=== PATIENT | male | born 1965 | race Caucasian/White ===

== ENCOUNTER 2016-10-12 02:14 | Inpatient (IN) | payer OTHER ==
[2016-10-12] VITALS (9 sets, daily range): BP systolic 116–160; BP diastolic 57–85; PULSE 79–90; RESP 14–21; TEMP 98.3; Ht 177.8 cm; Wt 101.6 kg
[~2016-10-12] VITALS: Ht 177.8 cm; Wt 101.6 kg
--- NOTE | 2016-10-12 02:52 | RADRPT ---
PROCEDURE: XR Pelvis. CLINICAL INDICATION: Rectal foreign body. TECHNIQUE: Single AP view of the pelvis. COMPARISON: No prior studies are available for comparison. FINDINGS: There is a 4.7 cm length by 1.6 cm width oblong shape foreign body superimposed over the pelvis com patible with a history of rectal foreign body. Bowel gas pattern is unremarkable. There is no frac ture. Hips are unremarkable. Joint relationships are maintained. Bone mineralization is within no rmal limits. Pelvic vascular calcifications are present. IMPRESSION: Relatively large radiopaque foreign body consistent with a rectal foreign body. RPTAT: [facility]VK .Harry Díaz MD, MD Date Time Electronically viewed and signed by .Harry Díaz MD, on 10/12/2016 02:51 .K/
[2016-10-12] MEDS ORDERED: SOD CHLORIDE 0.9% 1,000 ML IV STA (03:25)
[2016-10-12] MEDS ORDERED: SOD CHLORIDE 0.9% 1,000 ML IV SCH (03:50)
[2016-10-12] MEDS ORDERED: ACETAMINOPHEN 325 MG TAB PO PRN (04:00)
[2016-10-12] MEDS ORDERED: ONDANSETRON 4 MG INJ IV PRN ×2 (04:00→06:30)
--- NOTE | 2016-10-12 04:13 | ERA ---
ER Documentation Chief Complaint Date/Time DATE: 10/12/16 TIME: 04:09 Chief Complaint anal foreign body since 4 pm HPI This is a 51-year-old male who presents to the emergency room for evaluation of an anal foreign body for the past 9 hours. The patient states that he was using this foreign body for sexual pleasure and has been unable to retrieve it. He denies any pain but does say he is uncomfortable and noted small amount of bleeding from the rectum and came to the ER for evaluation. The patient denies being on any blood thinners and states that he has a history of bipolar and hypertension ROS All systems reviewed and are negative except as per history of present illness. Allergies Allergies: Coded Allergies: No Known Drug Allergies (Verified Allergy, Unknown, 10/12/16) PMhx/Soc History of Surgery: No Anesthesia Reaction: No Hx Neurological Disorder: No Hx Respiratory Disorders: No Hx Cardiac Disorders: Yes (HTN) Hx Psychiatric Problems: No Hx Miscellaneous Medical Probl: No Hx Alcohol Use: Yes (occasionally) Hx Substance Use: No Hx Tobacco Use: Yes (quit) Smoking Status: Former smoker Physical Exam Vitals Vital Signs Date Time Temp Pulse Resp B/P Pulse Ox O2 Delivery O2 Flow Rate FiO2 10/12/16 02:18 98.0 92 20 172/92 98 Physical Exam INITIAL VITAL SIGNS: Reviewed by me GENERAL: The patient is well developed and appropriate for usual state of health in no apparent distress HEENT: Pupils equal, round, and reactive to light. EOMI. There is no scleral icterus. NECK: C-spine is soft and supple, there is no meningismus. There is no cervical lymphadenopathy. LUNGS: Clear to auscultation bilaterally. There are no rales, wheezes or rhonchi. HEART: Regular rate and rhythm, no murmurs, clicks, rubs or gallops. ABDOMEN: Soft, non-tender, non-distended. There are bowel sounds in all four quadrants. No rebound or guarding. EXTREMITIES: There is no peripheral cyanosis or edema. No focal swelling or erythema. NEUROLOGICAL: The patient moves all four extremities with 5/5 strength. Cranial nerves II - XII are intact. Normal gait. Alert and oriented SKIN: There is no apparent rash or petechiae. Rectal exam: No visible mucosal tearing, palpation of rectal foreign body approximately 7 cm into the rectum. No active bleeding HEME/LYMPHATIC: There is no evidence of excessive bruising or lymphedema. PSYCHIATRIC: The patient does not appear anxious or depressed. Results 24 hrs Current Medications Medications (Trade) Dose Ordered Sig/Braulio Route PRN Reason Start Time Stop Time Status Last Admin Dose Admin Sodium Chloride 1,000 ml @ 1,000 mls/hr Q1H STAT IV 10/12/16 03:25 10/12/16 04:24 Sodium Chloride (NS) 1,000 ml @ 125 mls/hr Q8H IV 10/12/16 03:50 10/12/16 11:49 Ondansetron HCl (Zofran Inj) 4 mg BRIDGE ORDER PRN IV NAUSEA AND/OR VOMITING 10/12/16 04:00 10/13/16 03:59 Acetaminophen (Tylenol Tab) 650 mg ER BRIDGE PRN PO MILD PAIN/FEVER 10/12/16 04:00 10/13/16 03:59 Procedures/MDM X-ray Pelvis 1V Interpreted by me: Bones: No fracture Joints: No dislocation Foreign body: Rectal foreign body X-ray Abdomen 1V Interpreted by me: Free Air: [None] Bowel Gas: [Nonspecific] Soft Tissue: Rectal foreign body This 51-year-old male presents to the emergency room for removal of a rectal foreign body. When I evaluated this patient he was hemodynamically stable. I did do a rectal exam was able to palpate a foreign body however I was unable to retrieve it manually. I did attempt to retrieve it using a plastic clamps from her [employer] car. I was unsuccessful after multiple attempts of doing this. I did then proceeded to place an anoscope this patient's rectum for visualization of this foreign body however endoscope was not long enough to visualize foreign body as it was too proximal. I have contacted our general surgeon on-call Dr. Haskins and I discussed the case with him. He asked if I can call gastroenterology. I paged Dr. sharpe multiple times however have not heard back at this time. The patient will be admitted at this time under the care of Dr. walker who states that he will follow-up with gastroenterology to determine whether this patient can have a colonoscopy for removal foreign body or whether this patient needs surgical removal. Critical Care: Excluding all billable procedures Time: 38 minutes Treatments/Evaluations: Close monitoring and treatment of unstable vital signs, cardiorespiratory, and neurologic status, while maintaining tight balance of fluid, respiratory, and cardiac interventions, multiple attempts of rectal foreign body removal. Departure Diagnosis: Primary Impression: Retained foreign body Additional Impression: Rectal foreign body Condition: Stable JACOB KELLY DO Oct 12, 2016 04:13
--- NOTE | 2016-10-12 04:21 | RADRPT ---
PROCEDURE: XR Abdomen. CLINICAL INDICATION: Abdominal pain. TECHNIQUE: 4 frontal views of the abdomen. COMPARISON: None. FINDINGS: There is an object within the mid pelvis measuring 4.8 x 1.6 cm. There is moderate retained stool w ithin the colon. There is no bowel obstruction or free air. There is no organomegaly. There is no abnormal calcification. The osseous structures are unremarkable. IMPRESSION: Rectal foreign body. There is no definite free air identified. Moderate retained stool within the colon. .Forrest Garcia MD, MD Date Time Electronically viewed and signed by .Forrest Garcia MD, on 10/12/2016 04:21 .T/
[2016-10-12 04:24] LABS: BASOPHILS % 0.5 % (0.0-2.0); EOSINOPHILS # 0.1 10^3/ul (0.0-0.5); EOSINOPHILS % 1.4 % (0.0-7.0); HEMATOCRIT 41.8 % (42.0-52.0); HEMOGLOBIN 14.1 g/dl (14.0-18.0); LYMPHOCYTES # 2.3 10^3/ul (0.8-2.9); LYMPHOCYTES % 26.5 % (15.0-51.0); MEAN CORPUSCULAR HEMOGLOBIN 30.3 pg (29.0-33.0); MEAN CORPUSCULAR HGB CONC 33.7 g/dl (32.0-37.0); MEAN CORPUSCULAR VOLUME 89.7 fl (82.0-101.0); MEAN PLATELET VOLUME 9.2 fl (7.4-10.4); MONOCYTE # 0.9 10^3/ul (0.3-0.9); MONOCYTES % 10.3 % (0.0-11.0); NEUTROPHIL # 5.3 10^3/ul (1.6-7.5); NEUTROPHILS % 60.6 % (39.0-77.0); PLATELET COUNT 259 10^3/UL (140-415); RED BLOOD COUNT 4.66 10^6/ul (4.70-6.10); RED CELL DISTRIBUTION WIDTH 12.3 % (11.5-14.5); WHITE BLOOD COUNT 8.7 10^3/ul (4.8-10.8)
[2016-10-12 04:32] LABS: INR 0.96; PARTIAL THROMBOPLASTIN TIME 25.4 Sec (25.0-35.0); PROTIME 12.8 Sec (12.2-14.2)
[2016-10-12 04:35] LABS: ALBUMIN 4.7 g/dl (3.3-4.9); ALBUMIN/GLOBULIN RATIO 1.56; BILIRUBIN,INDIRECT 0.2 mg/dl (0-1.1); BILIRUBIN,TOTAL 0.2 mg/dl (0.2-1.3); CALCIUM 9.7 mg/dl (8.4-10.2); CREATININE 1.02 mg/dl (0.61-1.24); POTASSIUM 4.1 mmol/L (3.5-5.1); TOTAL PROTEIN 7.7 g/dl (6.1-8.1)
[2016-10-12] MEDS ORDERED: LISI10TA2 PO (04:58)
[2016-10-12] MEDS ORDERED: LITH450T PO (04:58)
[2016-10-12] MEDS ORDERED: CLON0.5T4 PO (04:59)
[2016-10-12] MEDS ORDERED: BUPR150T6 PO (04:59)
[2016-10-12] MEDS ORDERED: ATOR20TA38 PO (04:59)
[2016-10-12] MEDS ORDERED: BUPR300T36 PO (04:59)
[2016-10-12] MEDS ORDERED: EMTR1TAB11 PO (05:00)
[2016-10-12 05:13] LABS: ADD UMIC NO; UR ASCORBIC ACID NEGATIVE (NEGATIVE); UR BILIRUBIN (Dip) NEGATIVE (NEGATIVE); UR BLOOD (Dip) NEGATIVE (NEGATIVE); UR CLARITY CLEAR (CLEAR); UR COLOR STRAW (YELLOW); UR GLUCOSE (Dip) NEGATIVE (NEGATIVE); UR KETONES (Dip) NEGATIVE (NEGATIVE); UR LEUKOCYTE ESTERASE (Dip) NEGATIVE Leu/ul (NEGATIVE); UR NITRITE (Dip) NEGATIVE (NEGATIVE); UR SPECIFIC GRAVITY (Dip) 1.011 (1.003-1.030); UR TOTAL PROTEIN (Dip) NEGATIVE (NEGATIVE); UR UROBILINOGEN (Dip) NEGATIVE (NEGATIVE)
[2016-10-12] MEDS ORDERED: morphine 2 MG INJ IV PRN (06:30)
[2016-10-12] MEDS ORDERED: clonAZEPAM 0.5 MG TAB PO PRN (06:30)
--- NOTE | 2016-10-12 06:44 | HP ---
Date/Time of Note Date/Time of Note DATE: 10/12/16 TIME: 06:33 Assessment/Plan VTE Prophylaxis VTE Prophylaxis Intervention: SCD's Assessment/Plan Chief Complaint/Hosp Course This is a 51-year-old male being admitted to the [facility] for: #1 rectal foreign body: Pelvic and abdominal x-rays do show the presence of a large oblong foreign body in the rectal region. Manual extraction was attempted in the ED by the ED physician however it was unsuccessful. The surgeon chemical instrumentation officer was consulted by the ED physician. The surgeon also recommended a GI consultation however the ED was not able to get in touch with the GI doctor chemical instrumentation officer. We will try again in the morning to get in touch with GI. At the current time we will keep the patient n.p.o. except medications will provide him with IV fluid hydration. Provide him morphine for pain control. Though there were no rectal tears seen based on the ED physicians exam , I will order an H&H in 6 hours as the patient did state that he noticed some blood in the stool. #2 bipolar disorder: Patient does not appear to be in manic phase at this point or home homicidal or suicidal. Continue patient's home medications. #3 Hypertension: Continue home blood pressure medications. #4 hyperlipidemia: Continue home statin. #5 HIV prophylaxis: Patient takes Truvada at home, he will have his partner bring his home medication and to be taken. He states he gets tested regularly for HIV. #6 DVT and GI prophylaxis: SCDs, Protonix Further treatment strategy will be implemented as per the clinical course. Problems: HPI/ROS Admit Date/Time Admit Date/Time Oct 12, 2016 at 03:51 Hx of Present Illness Chief complaint: Anal foreign body This is a 51-year-old male who presents to the emergency room for evaluation of an anal foreign body for the past 9 hours. The patient states that he was using this foreign body for sexual pleasure and has been unable to retrieve it. He denies any pain but does say he is uncomfortable and noted small amount of bleeding from the rectum and came to the ER for evaluation. The patient denies being on any blood thinners and states that he has a history of bipolar and hypertension. Upon my examination patient states that he has used this foreign body before but is the first time that has gotten stuck. His sexual orientation is homosexual and he has a partner. He does state that he has occasional painful spasms. I did discuss the case with the ED physician who did state that he tried manual retrieval of the foreign body however it was unsuccessful in extracting it. Allergies: Eggplant, pineapple, tomatoes, strawberries Medications: See ANGIE HANNON Const: As per HPI Eyes : No pain discharge or redness or change in visual acuity ENT: No pain, sore throat, congestion, congestion, dysphagia or discharge Respiratory: No shortness of breath, cough, sputum, wheezing, or pleuritic pain Cardiovascular: No chest pain, palpitation, PND, or edema GI : As per HPI Genitourinary: No dysuria, hematuria, flank pain , discharge or CVA tenderness Musculoskeletal: No joint pain, back pain, neck pain, restricted range of motion in neck or joints Skin: No rash, bruising or hives Neuro: No headache, dizziness, syncope, seizure, focal weakness Endocrine: No polyuria, polydipsia, temperature intolerance Psych: No hallucination, depression, anxiety or suicidal ideation PMH/Family/Social Past Medical History Bipolar disorder, hypertension Past Surgical History Past Surgical Hx: no surgical history Family History Significant Family History: hypertension (Dad) Social History Alcohol Use: rarely Smoking Status: Former smoker Drug Use: none Exam/Review of Systems Vital Signs Vitals Vital Signs Date Time Temp Pulse Resp B/P Pulse Ox O2 Delivery O2 Flow Rate FiO2 10/12/16 05:05 98.3 75 21 128/79 98 Room Air Intake and Output 10/11/16 10/11/16 10/12/16 15:00 23:00 07:00 Intake Total 1000 ml Balance 1000 ml Exam Exam General: Patient is well-developed lying in bed in no acute distress HEENT: Atraumatic, normocephalic. The pupils are equal, round and reactive. Extraocular motor are intact Neck: Supple with full range of motion. No rigidity or meningismus Chest: Nontender Lungs: Clear to auscultation bilaterally no crackles rales or wheezing Heart: Normal S1-S2, Regular rhythm and rate. No murmur, S3, or S4 Abdomen: Soft, nontender nondistended. Deferred rectal examination at this time as he already was examined extensively in the ED. Extremities: Normal to inspection, no edema no cyanosis Neurologic: Normal mental status, speech normal, cranial nerves II through XII are intact, motor and sensory are intact, no focal weakness Additional Comments PROCEDURE: XR Abdomen. CLINICAL INDICATION: Abdominal pain. TECHNIQUE: 4 frontal views of the abdomen. COMPARISON: None. FINDINGS: There is an object within the mid pelvis measuring 4.8 x 1.6 cm. There is moderate retained stool within the colon. There is no bowel obstruction or free air. There is no organomegaly. There is no abnormal calcification. The osseous structures are unremarkable. IMPRESSION: Rectal foreign body. There is no definite free air identified. Moderate retained stool within the colon. .Forrest Garcia MD, MD Date Time Electronically viewed and signed by .Forrest Garcia MD, on 10/12/2016 04:21 PROCEDURE: XR Pelvis. CLINICAL INDICATION: Rectal foreign body. TECHNIQUE: Single AP view of the pelvis. COMPARISON: No prior studies are available for comparison. FINDINGS: There is a 4.7 cm length by 1.6 cm width oblong shape foreign body superimposed over the pelvis compatible with a history of rectal foreign body. Bowel gas pattern is unremarkable. There is no fracture. Hips are unremarkable. Joint relationships are maintained. Bone mineralization is within normal limits. Pelvic vascular calcifications are present. IMPRESSION: Relatively large radiopaque foreign body consistent with a rectal foreign body. RPTAT: HMVK .Harry Díaz MD, Date Time Electronically viewed and signed by .Harry Díaz MD, MD on 10/12/2016 02:51 Labs Result Diagram: 10/12/16 0350 10/12/16 0350 Medications Medications Current Medications Sodium Chloride (NS) 1,000 ml @ 125 mls/hr Q8H IV Last administered on t 05:56; Admin Dose 125 MLS/HR; Start 10/12/16 at 03:50; Stop 10/12/16 at 11: 49 Atorvastatin Calcium (Lipitor) 20 mg QHS PO ; Start 10/12/16 at 21:00 Bupropion HCl (Wellbutrin Xl) 150 mg QAM PO ; Start 10/12/16 at 09:00 Bupropion HCl (Wellbutrin Xl) 300 mg QPM PO ; Start 10/12/16 at 21:00 Clonazepam (Klonopin) 0.5 mg BID PRN PO ANXIETY; Start 10/12/16 at 06:30 Emtricitabine/ Tenofovir (Truvada) 1 tab DAILY PO ; Start 10/12/16 at 09:00 Lisinopril (Zestril) 10 mg DAILY PO ; Start 10/12/16 at 09:00 [place] Carbonate ([place] Carbonate (Sr)) 450 mg TID PO ; Start 10/12/16 at 09: 00; Status UNV Ondansetron HCl (Zofran Inj) 4 mg Q4H PRN IV NAUSEA AND/OR VOMITING; Start at 06:30 Morphine Sulfate (morphine) 1 mg Q4H PRN IV PAIN; Start 10/12/16 at 06:30 MARICARMEN GREENFIELD Oct 12, 2016 06:44
[2016-10-12] MEDS ORDERED: SOD CHLORIDE 0.45% 1,000 ML IV SCH (07:30)
[2016-10-12] MEDS ORDERED: LISINOPRIL 10 MG TAB PO SCH (09:00)
[2016-10-12] MEDS ORDERED: LITHIUM CARBONATE (SR) 300 MG TAB PO SCH (09:00)
[2016-10-12] MEDS ORDERED: EMTRICITABINE/TENOFOVIR TAB PO SCH (09:00)
[2016-10-12] MEDS ORDERED: BUPROPION (XL) 150 MG TAB PO SCH ×2 (09:00→21:00)
[2016-10-12] MEDS ORDERED: ROCURONIUM 50 MG INJ ONE (10:10)
[2016-10-12] MEDS ORDERED: PROPOFOL 20 ML ONE (10:10)
[2016-10-12] MEDS ORDERED: CEFAZOLIN 1 GM INJ ONE (10:11)
[2016-10-12] MEDS ORDERED: FENTAnyl 50 MCG/ML VIAL ONE ×2 (10:11)
[2016-10-12] MEDS ORDERED: ONDANSETRON 4 MG INJ ONE (10:11)
[2016-10-12] MEDS ORDERED: DEXAMETHASONE 4 MG/ML 1 ML INJ ONE (10:11)
[2016-10-12] MEDS ORDERED: NEOSTIGMINE 3 MG/3 ML SYRINGE ONE (10:11)
[2016-10-12] MEDS ORDERED: MIDAZOLAM 1 MG/ML 2 ML INJ ONE (10:11)
--- NOTE | 2016-10-12 10:14 | CONS ---
Date/Time of Note Date/Time of Note DATE: 10/12/16 TIME: 10:14 Assessment/Plan Assessment/Plan Additional Assessment/Plan Assessment: * Foreign body in the rectum/large "sexual toy" accidentally lost * Bipolar illness * Hypertension * Dyslipidemia * On Truvada for HIV prophylaxis Plan: * Urgent colonoscopy foreign body removal Consultation Date/Type/Reason Admit Date/Time Oct 12, 2016 at 03:51 Date of Consultation: Oct 12, 2016 Type of Consultation: GI Reason for Consultation * Foreign body and rectum Hx of Present Illness 51-year-old male with history of bipolar illness, he presented to the emergency room after accidentally losing control of a large "sexual toy". X-rays showed a sizable foreign body in the area of the rectum, attempted removal in the emergency room were unsuccessful. The patient has experienced discomfort in the lower abdomen described as cramping and also had a small amount of blood noted through the rectum. At this point the patient will be evaluated with colonoscopy and attempted foreign body removal. The case has been reviewed with surgical elastic knitter hand frame who is on standby if I am unable to remove foreign body to attempt surgical removal transanally or if necessary with laparotomy. The patient has been informed of the nature of the procedure the significant risks of potential injury. He is agreeable to proceed. . Constitutional: improved, no complaints Eyes: no complaints ENT: no complaints Respiratory: no complaints Cardiovascular: no complaints Gastrointestinal: other (See history of present illness) Genitourinary: no complaints Musculoskeletal: no complaints Skin: no complaints Neurologic: no complaints Endocrine: no complaints Lymphatic: no complaints Psychological: nl mood/affect, no complaints Immunologic: no complaints Past Medical History * Bipolar illness * Hypertension * Dyslipidemia * Truvada for HIV prophylaxis Past Surgical History Past Surgical Hx: no surgical history Family History Significant Family History: no pertinent family hx Social History Alcohol Use: rarely Smoking Status: Former smoker Drug Use: none Exam/Review of Systems Vital Signs Vitals Vital Signs Date Time Temp Pulse Resp B/P Pulse Ox O2 Delivery O2 Flow Rate FiO2 10/12/16 08:07 98.4 79 16 116/69 95 10/12/16 05:30 Room Air Intake and Output 10/11/16 10/11/16 10/12/16 15:00 23:00 07:00 Intake Total 1000 ml Balance 1000 ml Exam Constitutional: alert, obese, oriented, well developed Psych: nl mood/affect, no complaints Head: atraumatic, normocephalic Eyes: EOMI, PERRL, nl conjunctiva, nl lids, nl sclera ENMT: nl external ears & nose, nl lips & teeth, nl nasal mucosa & septum Neck: non-tender, supple Respiratory: clear to auscultation, normal air movement Cardiovascular: nl pulses, regular rate and rhythm Gastrointestinal: nl liver, spleen, non-tender, other (Rectal exam deferred to colonoscopy), soft Musculoskeletal: nl extremities to inspection, nl gait and stance Extremities: normal pulses Neurological: CONVEYOR LOADER II-XII intact, nl mental status, nl speech, nl strength Skin: nl turgor, No rash or lesions Lymph: nl lymph nodes Results Result Diagram: 10/12/16 0350 10/12/16 0350 Results 24 hrs Laboratory Tests Test 10/12/16 03:50 10/12/16 04:20 White Blood Count 8.7 Red Blood Count 4.66 L Hemoglobin 14.1 Hematocrit 41.8 L Mean Corpuscular Volume 89.7 Mean Corpuscular Hemoglobin 30.3 Mean Corpuscular Hemoglobin Concent 33.7 Red Cell Distribution Width 12.3 Platelet Count 259 Mean Platelet Volume 9.2 Neutrophils % 60.6 Lymphocytes % 26.5 Monocytes % 10.3 Eosinophils % 1.4 Basophils % 0.5 Nucleated Red Blood Cells % 0.0 Neutrophils # 5.3 Lymphocytes # 2.3 Monocytes # 0.9 Eosinophils # 0.1 Basophils # 0.0 Nucleated Red Blood Cells # 0.0 Prothrombin Time 12.8 Prothrombin Time Ratio 1.0 INR International Normalized Ratio 0.96 Activated Partial Thromboplast Time 25.4 Sodium Level 146 H Potassium Level 4.1 Chloride Level 106 Carbon Dioxide Level 25 Anion Gap 19 H Blood Urea Nitrogen 14 Creatinine 1.02 Glucose Level 89 Calcium Level 9.7 Total Bilirubin 0.2 Direct Bilirubin 0.00 Indirect Bilirubin 0.2 Aspartate Amino Transf (AST/SGOT) 28 Alanine Aminotransferase (ALT/SGPT) 55 Alkaline Phosphatase 56 Total Protein 7.7 Albumin 4.7 Globulin 3.00 Albumin/Globulin Ratio 1.56 Lipase 94 Urine Color STRAW Urine Clarity CLEAR Urine pH 7.0 Urine Specific [place] 1.011 Urine Ketones NEGATIVE Urine Nitrite NEGATIVE Urine Bilirubin NEGATIVE Urine Urobilinogen NEGATIVE Urine Leukocyte Esterase NEGATIVE Urine Hemoglobin NEGATIVE Urine Glucose NEGATIVE Urine Total Protein NEGATIVE Medications Medications Current Medications Atorvastatin Calcium (Lipitor) 20 mg QHS PO ; Start 10/12/16 at 21:00 Bupropion HCl (Wellbutrin Xl) 150 mg QAM PO ; Start 10/12/16 at 09:00 Bupropion HCl (Wellbutrin Xl) 300 mg QPM PO ; Start 10/12/16 at 21:00 Clonazepam (Klonopin) 0.5 mg BID PRN PO ANXIETY; Start 10/12/16 at 06:30 Emtricitabine/ Tenofovir (Truvada) 1 tab DAILY PO ; Start 10/12/16 at 09:00 Lisinopril (Zestril) 10 mg DAILY PO ; Start 10/12/16 at 09:00 [place] Carbonate ([place] Carbonate (Sr)) 450 mg TID PO ; Start 10/12/16 at 09: 00; Status UNV Ondansetron HCl (Zofran Inj) 4 mg Q4H PRN IV NAUSEA AND/OR VOMITING; Start at 06:30 Morphine Sulfate 1 mg 1 mg Q4H PRN IV PAIN Last administered on 10/12/16 06:41 ; Admin Dose 1 MG; Start 10/12/16 at 06:30 Sodium Chloride (1/2 NS) 1,000 ml @ 125 mls/hr Q8H IV Last administered on 08:42; Admin Dose 125 MLS/HR; Start 10/12/16 at 07:30 MARY ELLEN BRUNNER MD Oct 12, 2016 10:14
[2016-10-12] MEDS ORDERED: SUGAMMADEX SODIUM 200 MG/2 ML VIAL IV ONE (10:35)
--- NOTE | 2016-10-12 10:54 | OPR ---
Date/Time of Note Date/Time of Note DATE: 10/12/16 TIME: 10:51 Operative Report Preoperative Diagnosis * Foreign body and rectum Postoperative Diagnosis Impression: * Large approximately 15 cm long by 5 cm wide foreign body in rectum/removed * Shallow ulcerations/erosions in the rectum likely traumatic * 4 mm polyp in the distal sigmoid colon. Ablated * Large internal hemorrhoids Plan: * Advance diet as tolerated * Review pathology * Outpatient colonoscopy with prep as soon as possible given the finding of polyp in the sigmoid * If able to tolerate diet and no significant symptoms appears safe for outpatient follow-up . Operation/Procedure Performed * Colonoscopy foreign body removal * Colonoscopy with polyp ablation Surgeon: MARY ELLEN BRUNNER MD Anesthesia: general Estimated Blood Loss: none Specimens * Foreign body * sigmoid polyp Grafts/Implants * None Complications: None MARY ELLEN BRUNNER MD Oct 12, 2016 10:54
[2016-10-12] MEDS ORDERED: ACET-2047 PO (11:54)
--- NOTE | 2016-10-12 11:55 | PDOCDIS ---
Discharge Instructions CONDITION Patient Condition: Stable HOME CARE INSTRUCTIONS: Diet Instructions: Low Fat /Cholesterol ACTIVITY: Activity Restrictions: Slowly Increase Activity FOLLOW UP/APPOINTMENTS Follow-up Plan Follow-up with your primary care doctor. OTHER ORDERS: Other Orders: Call 911 and go to the nearest ER if you develop severe abdominal pain, rectal pain, bleeding, fever/chills or shortness of breath PARESH KENNEDY MD Oct 12, 2016 11:55
--- NOTE | 2016-10-12 12:11 | DS ---
Date/Time of Note Date/Time of Note DATE: 10/12/16 TIME: 12:08 Discharge Summary Admission/Discharge Info Admit Date/Time Oct 12, 2016 at 03:51 Discharge Date/Time Discharge Diagnosis Foreign body in the rectum, status post colonoscopy with removal Patient Condition: Stable Hx of Present Illness This is a 51-year-old male who presents to the emergency room for evaluation of an anal foreign body for the past 9 hours. The patient states that he was using this foreign body for sexual pleasure and has been unable to retrieve it. He denies any pain but does say he is uncomfortable and noted small amount of bleeding from the rectum and came to the ER for evaluation. The patient denies being on any blood thinners and states that he has a history of bipolar and hypertension. Upon my examination patient states that he has used this foreign body before but is the first time that has gotten stuck. His sexual orientation is homosexual and he has a partner. He does state that he has occasional painful spasms. Hospital Course KUB was done and it showed Rectal foreign body. There is no definite free air identified. Moderate retained stool within the colon. Patient was admitted and seen by GI. Colonoscopy was done with the following findings Large approximately 15 cm long by 5 cm wide foreign body in rectum/removed * Shallow ulcerations/erosions in the rectum likely traumatic * 4 mm polyp in the distal sigmoid colon. Ablated * Large internal hemorrhoids Plan is to advance his diet and if he tolerates that he will be discharged to follow-up with his primary care doctor. . Home Meds Active Scripts Acetaminophen* (Acetaminophen*) 650 Mg Tablet, 650 MG PO Q6H Y for PAIN, #20 TAB Prov:PARESH KENNEDY MD 10/12/16 Reported Medications Emtricitabine-Tenofovir* (Truvada*) 200-300 Mg Tablet, 1 TAB PO DAILY, TAB 10/12/16 Bupropion Hcl* (Bupropion XL*) 300 Mg Tab.sr.24h, 300 MG PO QPM, TAB.SA 10/12/16 Bupropion Hcl* (Bupropion XL*) 150 Mg Tab.er.24h, 150 MG PO QAM, TAB.SA 10/12/16 Atorvastatin Calcium* (Atorvastatin Calcium*) 20 Mg Tablet, 20 MG PO QHS, #30 TAB 10/12/16 Clonazepam* (Clonazepam*) 0.5 Mg Tablet, 0.5 MG PO BID, TAB 10/12/16 [place] Carbonate* (Eskalith* CR) 450 Mg Tablet.sa, 450 MG PO BID, TAB.SA 10/12/16 Lisinopril* (Lisinopril*) 10 Mg Tablet, 10 MG PO DAILY, #30 TAB 10/12/16 Follow-up Plan Follow-up with your primary care doctor. Go to the nearest emergency department if you experienced rectal bleeding, severe rectal pain, fever or chills. Primary Care Provider Not On Staff Doctor Pending Labs Laboratory Tests Test 10/12/16 03:50 10/12/16 04:20 White Blood Count 8.710^3/ul (4.8-10.8) Red Blood Count 4.6610^6/ul (4.70-6.10) Hemoglobin 14.1g/dl (14.0-18.0) Hematocrit 41.8% (42.0-52.0) Mean Corpuscular Volume 89.7fl (82.0-101.0) Mean Corpuscular Hemoglobin 30.3pg (29.0-33.0) Mean Corpuscular Hemoglobin Concent 33.7g/dl (32.0-37.0) Red Cell Distribution Width 12.3% (11.5-14.5) Platelet Count 26753^3/UL (140-415) Mean Platelet Volume 9.2fl (7.4-10.4) Neutrophils % 60.6% (39.0-77.0) Lymphocytes % 26.5% (15.0-51.0) Monocytes % 10.3% (0.0-11.0) Eosinophils % 1.4% (0.0-7.0) Basophils % 0.5% (0.0-2.0) Nucleated Red Blood Cells % 0.0/100WBC (0.0-0.0) Neutrophils # 5.310^3/ul (1.6-7.5) Lymphocytes # 2.310^3/ul (0.8-2.9) Monocytes # 0.910^3/ul (0.3-0.9) Eosinophils # 0.110^3/ul (0.0-0.5) Basophils # 0.010^3/ul (0.0-0.1) Nucleated Red Blood Cells # 0.010^3/ul (0.0-0.0) Prothrombin Time 12.8Sec (12.2-14.2) Prothrombin Time Ratio 1.0 INR International Normalized Ratio 0.96 Activated Partial Thromboplast Time 25.4Sec (25.0-35.0) Sodium Level 146mmol/L (135-144) Potassium Level 4.1mmol/L (3.5-5.1) Chloride Level 106mmol/L (97-110) Carbon Dioxide Level 25mmol/L (21-31) Anion Gap 19 (8-16) Blood Urea Nitrogen 14mg/dl (7-20) Creatinine 1.02mg/dl (0.61-1.24) Glucose Level 89mg/dl (70-220) Calcium Level 9.7mg/dl (8.4-10.2) Total Bilirubin 0.2mg/dl (0.2-1.3) Direct Bilirubin 0.00mg/dl (0.00-0.20) Indirect Bilirubin 0.2mg/dl (0-1.1) Aspartate Amino Transf (AST/SGOT) 28IU/L (15-46) Alanine Aminotransferase (ALT/SGPT) 55IU/L (13-69) Alkaline Phosphatase 56IU/L (42-121) Total Protein 7.7g/dl (6.1-8.1) Albumin 4.7g/dl (3.3-4.9) Globulin 3.00g/dl (1.3-3.2) Albumin/Globulin Ratio 1.56 Lipase 94U/L (23-300) Urine Color STRAW (YELLOW) Urine Clarity CLEAR (CLEAR) Urine pH 7.0 (5.0-9.0) Urine Specific [place] 1.011 (1.003-1.030) Urine Ketones NEGATIVEmg/dL (NEGATIVE) Urine Nitrite NEGATIVEmg/dL (NEGATIVE) Urine Bilirubin NEGATIVEmg/dL (NEGATIVE) Urine Urobilinogen NEGATIVEmg/dL (NEGATIVE) Urine Leukocyte Esterase NEGATIVELeu/ul (NEGATIVE) Urine Hemoglobin NEGATIVEmg/dL (NEGATIVE) Urine Glucose NEGATIVEmg/dL (NEGATIVE) Urine Total Protein NEGATIVEmg/dl (NEGATIVE) PARESH KENNEDY MD Oct 12, 2016 12:11
[2016-10-12 12:12] LABS: HEMATOCRIT 39.9 % (42.0-52.0); HEMOGLOBIN 13.9 g/dl (14.0-18.0)
[2016-10-12] MEDS ORDERED: ATORVASTATIN 20 MG TAB PO SCH (21:00)
--- NOTE | 2016-10-15 03:12 | GILP ---
DATE OF PROCEDURE: 10/12/2016 PROCEDURE: Colonoscopy performed, foreign body removal, and colonoscopy with polyp ablation. HISTORY AND INDICATIONS: The patient with foreign body in the rectum. PREMEDICATION: General anesthesia. TECHNIQUE: After informed consent, with the patient/relatives understanding the procedure, its indications potential risks and complications, including but not limited to: allergic reaction, bleeding, perforation, infection, missed lesions and after all pertinent questions were answered to the patient's satisfaction, the patient/relatives signed the witnessed informed consent. The patient was placed in the left lateral decubitus and digital rectus examination was performed. We were able to feel or touch the foreign body, and with an effort, we were able to secure it and retrieve it with significant difficulty. Following this, the Olympus colonoscope was introduced and advanced under visual control. The rectum shows shallow areas of ulcerations/erosions. A formal venal polyp was noted in the distal sigmoid and was ablated with biopsy forceps. The preparation precludes adequate examination of the remainder of the colon. The instrument was then withdrawn. Large internal hemorrhoids are present. IMPRESSION: 1. Large approximately 15-cm long by 5-cm wide foreign body in the rectum removed. 2. Shallow ulcerations/erosions in the rectum, likely traumatic. 3. A 4-mm polyp in the distal sigmoid ablated. 4. Large internal hemorrhoids. RECOMMENDATIONS: Diet will be advanced. Review pathology. Outpatient colonoscopy with adequate prep as soon as possible, given the finding of colonic polyp. Dictated By: Konrad Flores MD /tee/luz elena /Document#: [id number]
== END 2016-10-12 12:55 | disposition home or self-care (01) | DRG 395 ==
LOC: E/R 02:14 → PP2 03:51
PROVIDERS: ADMIT Family Medicine; ATTEND Family Medicine
PROC: 0DCP8ZZ Extirpation of Matter from Rectum, Via Natural or Artificial Opening Endoscopic (ICD-10-PCS; principal; 2016-10-12 10:00)
PROC: 0DBN8ZX Excision of Sigmoid Colon, Via Natural or Artificial Opening Endoscopic, Diagnostic (ICD-10-PCS; 2016-10-12 10:00)
DX: T18.5XXA Foreign body in anus and rectum, initial encounter (principal); I10 Essential (primary) hypertension; K63.5 Polyp of colon; K64.8 Other hemorrhoids; E78.5 Hyperlipidemia, unspecified; Z87.891 Personal history of nicotine dependence; F31.9 Bipolar disorder, unspecified; X58.XXXA Exposure to other specified factors, initial encounter; Y92.009 Unspecified place in unspecified non-institutional (private) residence as the place of occurrence of the external cause
CPT/HCPCS: 36415; 72170; 74010; 80053; 81003; 83690; 85014; 85018; 85025; 85610; 85730; 96360; J0690; J1100; J2250; J2270; J2405; J2710; J3010; J7030